=== PATIENT | female | born 2005 | race Two or more races ===

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

== ENCOUNTER → 2025-06-01 | Outpatient (CLI) | payer MEDICAID, SELFPAY ==
--- NOTE | 2025-06-01 14:25 | XR_ITS ---
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
== END | disposition home or self-care (01) ==
PROVIDERS: PCP Nurse Practitioner Family; Referring Provider Orthopaedic Surgery; Visit Provider Orthopaedic Surgery
DX: S82.401A Unspecified fracture of shaft of right fibula, initial encounter for closed fracture (principal); X58.XXXA Exposure to other specified factors, initial encounter
CPT/HCPCS: 73590

== ENCOUNTER 2025-06-03 11:20 | Day surgery (SDC) | payer MEDICAID, SELFPAY ==
[2025-06-02 12:49] VITALS: BMI 29.9
[2025-06-02 14:04] LABS: Basophils # (Auto) 0.0 Thou/mm3 (0.0-0.2); Basophils % (Auto) 0 % (0-2.5); Eosinophils # (Auto) 0.2 Thou/mm3 (0.0-0.5); Eosinophils % (Auto) 2 % (0-10); Hematocrit 36.7 % (36.0-46.0); Hemoglobin 11.7 g/dL (12.0-16.0); Immature Granulocytes Auto 0.02 Thou/mm3 (0.00-0.00); Lymphocytes # (Auto) 2.1 Thou/mm3 (1.0-5.0); Lymphocytes % (Auto) 27 % (10-50); Mean Corpuscular HGB Conc 31.9 g/dl (31.0-37.0); Mean Corpuscular Hemoglobin 23.5 pg (25.0-35.0); Mean Corpuscular Volume 74 fL (80-100); Monocytes # (Auto) 0.6 Thou/mm3 (0.0-0.8); Monocytes % (Auto) 8 % (0-12); Neutrophils # (Auto) 4.9 Thou/mm3 (1.8-7.7); Neutrophils % (Auto) 63 % (37-80); Nucleated Red Blood Cell # 0.00 Thou/mm3 (0.00-0.00); Nucleated Red Blood Cell % 0 /100 WBC (0); Platelet Count 362 Thou/mm3 (140-440); RDW Standard Deviation 50.2 fL (36.4-46.3); Red Blood Count 4.97 Miln/mm3 (4.00-5.20); White Blood Count 7.8 Thou/mm3 (4.5-11.0)
[2025-06-02 14:22] LABS: Anion Gap 9 (7-16); BUN/Creatinine Ratio 8 Ratio (12-20); Blood Urea Nitrogen 5 mg/dL (9-23); Calcium 9.3 mg/dL (8.3-10.6); Carbon Dioxide 25.2 mMol/L (20.0-31.0); Chloride 105 mMol/L (98-107); Creatinine (Component) 0.6 mg/dL (0.6-1.3); Estimated Creatinine Clearance 153.5 mL/min (>60); Glucose 89 mg/dL (74-106); HCG,Qualitative Serum Negative; Osmolality,Calculated 273 (275-295); Potassium 4.3 mMol/L (3.4-5.1); Sodium 139 mMol/L (136-145); eGFR > 60 See Note
--- NOTE | 2025-06-02 15:48 | SUR.PREOP ---
Message left for pt to come in tomorrow at 1300. He mother did not answer either.
[2025-06-03] VITALS (8 sets, daily range): BP systolic 126–150; BP diastolic 69–97; PULSE 87–121; RESP 13–20; TEMP 36.7–37; O2SAT 98–100; BMI 29.6
--- NOTE | 2025-06-03 16:24 | PD.SUROPNT ---
Date of Procedure 06/03/25 Pre Op Diagnosis Painful intramedullary right tibial implant Post Op Diagnosis Same Procedure Removal of IM nail with 2 screws right tibia Findings Refer dictation Procedure Description Patient was given general endotracheal anesthesia. Once satisfactory anesthesia was achieved a tourniquet was placed on right upper thigh. Following that part was thoroughly prepped and draped. After using Esmarch the tourniquet pressure was raised to 350 mmHg. Intravenous antibiotics was given at the time of anesthesia Skin incision was made over the previously placed eschar. Deeper dissection was carried out. The patellar tendon was reflected laterally. With the help of blunt or sharp dissection the top end of the tibial nail was located. Screw was present there. The help of a screwdriver the From the nail was removed. Following that the surrounding an ingrown bone was removed. Following that the extractor was placed at the top end of the nail following that the wound was extended little bit distally and on the medial aspect the soft tissue was reflected. The 2 screws were found and they were removed 1 after another. Following that another device was added and with the help of slaphammer the nail was removed. Wound was irrigated with antibiotic solution every 4 to 5 minutes Closure the medial border of the patella and patellar tendon was closed with the help of 1 Vicryl in an interrupted fashion. The subcu tissue was closed with 2-0 Vicryl and the skin was closed with gentry 20 mL of quarter percent Marcaine was injected at the skin incision site After cleaning the wound with hydrogen peroxide solution a sterile dressing was applied. Patient tolerated procedure well. Estimated blood loss less than 5 mL. Patient will be partial weight-bear and will be allowed to be full weight-bear after removal of the gentry Prognosis in this case is good Anesthesia GETA Pathology / specimen None Estimated Blood Loss 5 Surgeon Thanh Yusuf MD Surgical Staff Operation Date: 06/03/25 15:30 Case Staff Anesthesiologist: Martínez Oliveira RNtraveling construction superintendent: Nereida Hoover RN First Assistant: Hipolito Foster
--- NOTE | 2025-06-03 16:43 | SUR.PHASEI ---
Pt. arrived to recovery via gurney, pt. appears to be crying, assessed pain level, per pt. no pain right now, per pt. I am nervous . VSS with exception of HR 118, no c/o chest pain or sob, lung sounds clear, equal expansion myles., dressing to right lower leg, gentry, fluffs, adaptic soaked in betadine, abd pad, bias roll and knee immobilizer in place. Pt. is able to move both feet, pedal pulses present myles., cap refill to lower extremities <3 seconds. Report received from Shakira HARRINGTON and Dr. Oliveira.
--- NOTE | 2025-06-03 16:50 | SUR.PHASEII ---
Pt. sitting up tolerating sips of water.
[2025-06-03] MEDS: fentaNYL CIT INJ 50 mCg/ML AMP 2ML IVP (17:21)
--- NOTE | 2025-06-03 18:05 | SUR.PHASEII ---
Pt. meets criteria for discharge, VSS, no c/o pain or nausea at this time, dressing to right lower leg CDI, IV discontinued without complications. Discharge instructions provided to pt. and pt.'s mother with use of medical record clerk services d/t pt.'s mother only speaking bulgarian, verbalized understanding. Pt. escorted to vehicle via w/c with all of belongings by staff.
--- NOTE | 2025-06-03 18:15 | ESHP_ITS ---
RE: RAE LY : 2005 DATE OF ADMISSION: 06/03/2025 The patient came to my office on 06/02/2025 for detailed preop history and physical examination. HISTORY OF PRESENTING COMPLAINT: The patient is status post IM nailing of the right tibia done in 05/2025. The fracture has healed up; however, the patient started having some pain and soreness at the scar site and also the cold weather was bothering her. The patient also has some anterior tibial pain as well. X-ray was obtained, which revealed very good healing of the tibia. 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 The patient wants implant to be removed. The patient is quite young and leaving implant for 40, 50, 60 years may cause some problem later on and at the moment, the patient is having some difficulty anyway. Hence, the patient and the family wanted it to remove. I agreed with the plan. PAST MEDICAL HISTORY: No history of diabetes mellitus, asthma, seizures, or high blood pressure. PAST SURGICAL HISTORY: Intramedullary nailing right tibia in 05/2025. ALLERGIES: NIL KNOWN. DRUG HISTORY: The patient is takin. Zepbound. 2. Ferrous sulfate. PHYSICAL EXAMINATION: GENERAL: Normal built with lady. VITAL SIGNS: Pulse 74 per minute, blood pressure 118/76. NECK: Soft, supple. No mass felt. Trachea is centrally placed. CARDIOVASCULAR SYSTEM: First and second heart sounds are normal. No murmur heard. RESPIRATORY SYSTEM: Bilateral vesicular breath sounds. CHEST: Clear. ABDOMEN: Soft. No mass felt. Bowel sounds present. EXTREMITIES: Right leg examination reveals very well-healed scar. Active range of motion of right knee is very good. The patient is able to walk well. X-ray was obtained, which revealed very good healing of the right tibia. Since the patient is symptomatic, therefore, removal of the nail with the screws were discussed and advised. Risks of anesthesia was explained and that includes, but not limited to reaction to anesthetic agents, cardiac arrest, and rarely it might be fatal. Risk with operation includes infection and if that happens, the patient will need further surgical procedure. Other risks include delayed healing, wound dehiscence, etc. The patient is also explained that after the removal of the nail, the patient may be partial weightbearing for about a week or 10 days and the patient is fully aware of that. No guarantees given regarding pain relief and/or functional outcome. Surgery booked for 06/03/2025. Appropriate lab work done. DT: 16:33:17 TT: 18:13:00 Ref: [id number] - TID: [id number]
== END 2025-06-03 18:05 | disposition home or self-care (01) ==
PROVIDERS: Referring Provider Orthopaedic Surgery; Visit Provider Orthopaedic Surgery
PROC: (CPT 20680; principal; 2025-06-03 15:15)
DX: T84.84XA Pain due to internal orthopedic prosthetic devices, implants and grafts, initial encounter (principal); Y84.8 Other medical procedures as the cause of abnormal reaction of the patient, or of later complication, without mention of misadventure at the time of the procedure
CPT/HCPCS: 20680; 36415; 80048; 84703; 85025; A4217; A4649; J0131; J1100; J1171; J1580; J2704; J2765; J3010; J3490; J7030; J0665